=== PATIENT | female | born 1950 | race Caucasian/White ===

== ENCOUNTER → 2021-11-02 | Outpatient (CLI) | payer MEDICARE | END | disposition home or self-care (01) | LOC: LABPAT 15:27 | PROVIDERS: ATTEND Orthopaedic Surgery | DX: Z01.812 Encounter for preprocedural laboratory examination (principal); Z22.322 Carrier or suspected carrier of Methicillin resistant Staphylococcus aureus; M17.11 Unilateral primary osteoarthritis, right knee | CPT/HCPCS: 87070 ==

== ENCOUNTER 2021-11-20 08:32 | Observation (INO) | payer MEDICARE ==
[2021-11-19 09:06] VITALS: BMI 36.1
--- NOTE | 2021-11-19 11:09 | HP ---
HISTORY AND PHYSICAL CHIEF COMPLAINT: Right knee pain. HISTORY OF PRESENT ILLNESS: The patient is a 71-year-old retired female who presents with progressive right knee pain over the past several years. It has worsened recently. She notes pain with weight-bearing activities. She has stiffness and soreness. She has tried previous medications and injections, with only partial temporary relief. PAST MEDICAL HISTORY: Significant for anemia, type 2 diabetes and hypertension. PAST SURGICAL HISTORY: Significant for left total knee arthroplasty and colonoscopy. CURRENT MEDICATIONS: Aspirin, gabapentin, glipizide, Invokana, Januvia, metformin, omeprazole, simvastatin. ALLERGIES: SHE DENIES DRUG ALLERGIES. FAMILY HISTORY: Significant for cancer. SOCIAL HISTORY: Negative for current tobacco or alcohol use. REVIEW OF SYSTEMS: Sixteen-point review of systems otherwise reviewed and is noncontributory. PHYSICAL EXAMINATION: On examination, the patient is approximately 5 feet tall, 185 pounds of endomorphic habitus. HEENT exam is nonfocal. Neck is supple. She has painless passive motion of the right hip. Straight-leg raise is negative. Active motion of right knee: Minus 8 to 92 degrees of flexion. She has a moderate effusion. She is tender about the medial joint line. Collaterals are stable. Deborah is negative. Beto's is equivocal. She has genu varum alignment. She has an antalgic gait pattern. Her distal neurovascular exam appears intact, right lower extremity. Weight-bearing notch, lateral and Merchant views of right knee obtained in the office show severe medial and patellofemoral compartment osteoarthrosis with subchondral sclerosis and [id number] changes. IMPRESSION: Right knee severe medial and patellofemoral compartment osteoarthrosis. RECOMMENDATIONS: I talked to the patient at length regarding her condition along with treatment options. At this point she is quite limited because of pain related to her osteoarthrosis despite previous conservative measures. After thorough discussion, she opts to proceed with surgery. We will plan to proceed with right total knee arthroplasty. We will institute DVT prophylaxis postoperatively. MMODL / IJN: [id number] /
[~2021-11-20 08:32] MED LIST: ACETAMINOPHEN TAB 500 MG TAB PO PRN; DEXAMETHASONE SOD PHOSPHATE 4 MG/ML 1 ML VIAL IV ONE; HYDROmorphone 0.5 MG/0.5 ML SYRINGE IVP PRN; LIDOCAINE 1% (10MG/ML) FOR IV START INTRADERMA PRN; MELOXICAM 7.5 MG TAB PO PRN; MIDAZOLAM 2 MG/2 ML VIAL IV PRN; ONDANSETRON 4 MG/2 ML VIAL IVP ONE; TRANEXAMIC ACID IN NACL,ISO-OS 1,000 MG in SALINE 1 100ML.BAG IVPB PRN
[2021-11-20] MEDS: LACTATED RINGERS 1,000 ML IV SCH (09:14)
[2021-11-20] MEDS ORDERED: MIDAZOLAM 2 MG/2 ML VIAL IVP ONE (09:33)
[2021-11-20 10:01] LABS: Glucose,Whole Blood 207 mg/dL (75-99)
[2021-11-20] MEDS ORDERED: INSULIN ASPART (NovoLOG) 100 UNIT/ML VIAL SQ ONE (10:04)
[2021-11-20] MEDS ORDERED: TRANEXAMIC ACID IN NACL,ISO-OS 1,000 MG/100 ML BAG ONE (10:23)
[2021-11-20] MEDS ORDERED: PROPOFOL 10 MG/ML 20 ML VIAL IV ONE (10:23)
[2021-11-20] MEDS ORDERED: DEXAMETHASONE SOD PHOSPHATE 4 MG/ML 1 ML VIAL ONE (10:23)
[2021-11-20] MEDS ORDERED: fentaNYL (PF) 50 MCG/ML 2 ML AMP ONE (10:23)
[2021-11-20] MEDS ORDERED: ROPIVACAINE 5 MG/ML 30 ML VIAL ONE (10:23)
[2021-11-20] MEDS ORDERED: MIDAZOLAM 2 MG/2 ML VIAL ONE (10:23)
[2021-11-20] MEDS ORDERED: ceFAZolin 1,000 MG in SODIUM CHLORIDE 0.9% 1,000 ML IRRIGATION ONE (10:50)
[2021-11-20] MEDS ORDERED: NALOXONE 0.4 MG/ML 1 ML VIAL IV PRN (11:37)
[2021-11-20] MEDS ORDERED: HYDROcodone/APAP 5-325MG 1 EACH TAB PO PRN (11:37)
[2021-11-20] MEDS ORDERED: LACTATED RINGERS 1,000 ML IV ONE (12:10)
--- NOTE | 2021-11-20 12:35 | P.OP ---
Date of Procedure: 11/20/21 Preoperative Diagnosis: Right knee severe tricompartmental osteoarthrosis Postoperative Diagnosis: Same Procedure(s) Performed: Right total knee arthroplastycementedposterior stabilized Implants: Depuy Attune size 3 cemented femoral component, size 3 cemented tibial component, 10 mm articular surface, 29 mm cemented patellar component. This is a posterior stabilized implant. Anesthesia: regional, spinal Surgeon: Wesley Edwards Cider Press Operator #1: Neto Thakkar Estimated Blood Loss (ml): 50 Pathology: other (Bone fragments) Condition: stable Disposition: PACU Indications for Procedure: The patient's a 71-year-old female presents with progressive right knee pain secondary osteoarthrosis despite conservative measures. A discussion of the risks and benefits of operative intervention versus continued conservative measures was made with the patient. She opted to proceed with surgery. Operative risks to include infection, neurovascular injury, development of blood clots, fracture, possible component loosening/failure need for subsequent procedures was discussed. Informed consent was obtained. Operative Findings: As below Description of Procedure: The patient was brought to the operating room, and after induction of spinal anesthesia the right lower extremity was prepped and draped in a normal fashion. The tourniquet was inflated to 270 mm marker. A longitudinal incision extending 3 finger breaths above the superior pole of patella extending to the medial aspect the tibial tubercle was then made. The skin and subcutaneous tissues were divided sharply. Electrocautery was used for hemostasis. A medial parapatellar arthrotomy was performed. The medial soft tissues to include the superficial and deep portions of the medial collateral ligament were elevated subperiosteally. The patella was everted. A portion of the retropatellar fat pad was excised sharply. The anterior cruciate ligament was sacrificed. Blunt retractors were placed. A starting hole was made in the distal femur 1 cm anterior to the posterior cruciate ligament origin. An intramedullary femoral guide was then inserted planning on 5 valgus distal cut with 9 mm distal resection. The cutting block was pinned in place. The distal cut was then made. The posterior referencing sizing guide was utilized. I felt size 3 was most appropriate. 3 of external rotation was built into the system and verified off the trans-epicondylar axis and the posterior condyles. The cutting block was pinned in place. The anterior, posterior, and chamfer cuts then made. Bone fragments were removed. The intercondylar guide was placed and the notch cut was made with a sagittal saw. The bone block was removed in one fragment. The trial component was then placed. There is good anterior to posterior and medial to lateral fit. The distal peg holes were drilled. The trial component was removed. Attention was then paid towards preparing the proximal femur. An extra medullary guide was utilized in line with the tibial shaft and second metatarsal distally. I planned on 1 mm resection from the medial compartment. The cutting block was pinned in place. The proximal tibial cut was then made. The bone was removed in one fragment. The remnants of the medial and lateral menisci were excised at the capsular junction with electrocautery. The tibia sized most appropriately at size 3. The trial femoral and tibial components were placed along with a 10 mm articular surface. I was able to obtain full flexion and extension with internal and external rotation. After several flexion and extension cycles, the tibial rotation was marked with electrocautery line with the medial one third of the tibial tubercle. Attention was then paid towards preparing the patella. A patella reamer was utilized taking stem to 14 mm of bone stock. A good flush cut was made. The patella sized most appropriately 29 mm. The peg holes were drilled. The trial components placed. I had good patellofemoral tracking with no hands technique. The trial components were then removed. The tibia was prepared in the appropriate rotation with appropriate drill and keel punch. The posterior osteophytes were removed with a curved osteotome. The flexion and extension gaps were checked and felt to be symmetric at 10 mm. A trial components were then removed. The bony surfaces were prepared with pulsatile lavage and dried. The tibial component was then cemented place was fully seated. Excess cement was removed. The femoral component cemented place and was fully seated. Excess cement was removed. The trial 10 mm articular surface was placed and the knee was put in full extension. The patella component was cemented place. After the cement had sufficiently hardened, the knee was again taken through a range of motion. Again I was able to obtain full flexion and extension with varus and valgus stress. The trial 10 mm articular surface was removed and the final one inserted. This was fully seated. Care was taken to avoid any soft tissue interposition. Pulsatile lavage was again utilized. The medial parapatellar arthrotomy was closed with #2 Ethibond suture. The tourniquet was deflated with approximately 65 minutes total tourniquet time. Final hemostasis was obtained with the cautery. There was minimal bleeding therefore a deep drain was not placed. The subcutaneous tissues were reapproximated with interrupted 2-0 Vicryl sutures. The skin was reapproximated with 3-0 subcuticular strata fix suture. Skin tape and adhesive was applied. A sterile dressing was applied. The patient was awoken from sedation and transferred to recovery room in good condition. Blood loss was estimated at 50 mL. No complications were incurred. Sponge and needle counts were correct at the end of the case. Madhu FAITH assisted during the major components of this case to include exposure, bone resection, implantation, and closure.
[2021-11-20] MEDS ORDERED: ROPIVACAINE 0.2%-NS ON-Q PUMP 1,090 MG, EMPTY PAIN BALL 1 EACH MISCELLANE PRN (12:48)
[2021-11-20 12:55] LABS: Glucose,Whole Blood 173 mg/dL (75-99)
--- NOTE | 2021-11-20 13:02 | XR ---
EXAMINATION TYPE: XR knee limited RT DATE OF EXAM: 11/20/2021 COMPARISON: NONE TECHNIQUE: Two views submitted HISTORY: Post op FINDINGS: There is a prosthetic knee in near anatomic alignment. There is soft tissue edema and emphysema. IMPRESSION: 1. Postoperative change. Appears in near-anatomic alignment
[2021-11-20] MEDS: HYDROmorphone 0.5 MG/0.5 ML SYRINGE IVP PRN (16:32)
[2021-11-20 16:57] LABS: Glucose,Whole Blood 247 mg/dL (75-99)
[2021-11-20] MEDS: HYDROcodone/APAP 7.5-325MG 1 EACH TAB PO PRN (17:19)
[2021-11-20] MEDS ORDERED: lisinopriL 10 MG TAB PO SCH (21:00)
[2021-11-20] MEDS: SENNOSIDES-DOCUSATE SODIUM 1 EACH TAB PO SCH (22:17)
[2021-11-20 22:37] LABS: Glucose,Whole Blood 272 mg/dL (75-99)
[2021-11-21] MEDS: HYDROcodone/APAP 7.5-325MG 1 EACH TAB PO PRN ×4 (00:14→17:56)
[2021-11-21 05:16] LABS: ALT 17 U/L (4-34); AST 18 U/L (14-36); African American GFR (CKD) 81 (>60 ml/min/1.73 sqM); Albumin 3.6 g/dL (3.5-5.0); Albumin/Globulin Ratio 1.6; Alkaline Phosphatase 75 U/L (38-126); Anion Gap 11 mmol/L; Blood Urea Nitrogen 20 mg/dL (7-17); Calcium 9.3 mg/dL (8.4-10.2); Carbon Dioxide 20 mmol/L (22-30); Chloride 105 mmol/L (98-107); Globulin 2.2 g/dL; Glucose 174 mg/dL (74-99); Non-African American GFR(CKD) 70 (>60 ml/min/1.73 sqM); Potassium 5.2 mmol/L (3.5-5.1); Sodium 136 mmol/L (137-145); Total Bilirubin 0.6 mg/dL (0.2-1.3); Total Protein 5.8 g/dL (6.3-8.2)
[2021-11-21] MEDS: ENOXAPARIN 30 MG/0.3 ML SYRINGE SQ SCH ×2 (06:01→17:56)
[2021-11-21] MEDS: LACTATED RINGERS 1,000 ML IV SCH (06:01)
[2021-11-21 07:03] LABS: Glucose,Whole Blood 177 mg/dL (75-99)
[2021-11-21] MEDS: INSULIN ASPART (NovoLOG) 100 UNIT/ML VIAL SQ SCH ×4 (07:27→21:06)
[2021-11-21] MEDS: HYDROmorphone 0.5 MG/0.5 ML SYRINGE IVP PRN ×2 (07:30→19:37)
--- NOTE | 2021-11-21 07:38 | P.PN ---
Progress Note - Text Progress Note Date: 11/21/21 A 71-year-old lady postop day #1 status post right total knee replacement with anicteric canal catheter. The patient has moderate pain anterior. There is no tenderness or erythema around the entry site of the catheter. The patient is getting combination of oral and IV medications for her pain.
[2021-11-21 08:59] LABS: Basophils # (A) 0.01 X 10*3/uL (0.00-0.10); Basophils % (A) 0.1 %; Eosinophils # (A) 0 X 10*3/uL (0.04-0.35); Eosinophils % (A) 0 %; HCT 42.1 % (37.2-46.3); HGB 13.2 g/dL (12.0-15.0); Immature Grans, Automated 0.6 %; Lymphocytes # (A) 1.44 X 10*3/uL (0.90-5.00); Lymphocytes % (A) 17.4 %; MCH 28.9 pg (27.0-32.0); MCHC 31.4 g/dL (32.0-37.0); MCV 92.1 fL (80.0-97.0); Mean Platelet Volume 11.4 fL (9.5-12.2); Monocytes # (A) 0.72 X 10*3/uL (0.20-1.00); Monocytes % (A) 8.7 %; NRBC Per 100 WBC 0 /100 WBCS (0.0-0.0); Neutrophils # (A) 6.04 X 10*3/uL (1.80-7.70); Neutrophils % (A) 73.2 %; Platelet Count 286 X 10*3/uL (140-440); RBC 4.57 X 10*6/uL (4.10-5.20); RDW 12.2 % (11.5-14.5); WBC 8.26 X 10*3/uL (4.50-10.00)
--- NOTE | 2021-11-21 11:11 | P.PN ---
Subjective Progress Note Date: 11/21/21 Principal diagnosis: Status post right total knee arthroplasty Patient evaluated at bedside, she is resting in her hospital chair. She is quite painful after ambulating with therapy. She was unable to do the stairs today. She denies any headaches, lightheadedness, chest pain or shortness of breath. She denies any difficulty with urination. Objective - Vital Signs Vital signs: Vital Signs Temp 97.3 F L 11/21/21 07:38 Pulse 80 11/21/21 07:38 Resp 17 11/21/21 07:38 BP 104/62 11/21/21 07:38 Pulse Ox 94 L 11/21/21 07:38 Intake & Output 11/20/21 11/21/21 11/21/21 18:59 06:59 18:59 Intake Total 1451 Output Total 50 Balance 1401 Weight 84.6 kg Intake: IV 1451 Output: Estimated Blood Loss 50 Other: Voiding Method Bedside Commode Bedpan # Voids 1 2 - Exam Right lower extremity: Incision is clean, dry, and intact. The exofin fusion tape is in good condition. There is minimal soft tissue swelling and ecchymosis surrounding the medial and lateral aspects of the incision. Calf is soft, no tenderness with palpation. Plantar flexion, dorsiflexion, EHL, FHL are intact. Sensory exam to light touch throughout the extremity is intact, dorsal pedis pulses 2+. - Labs CBC & Chem 7: 11/21/21 03:58 11/21/21 03:58 Labs: Abnormal Lab Results - Last 24 Hours (Table) 11/20/21 11/20/21 11/20/21 Range/Units 12:54 16:55 22:28 MCHC (32.0-37.0) g/dL Immature Gran # (0.00-0.04) X 10*3/uL Eosinophils # (0.04-0.35) X 10*3/uL Sodium (137-145) mmol/L Potassium (3.5-5.1) mmol/L Carbon Dioxide (22-30) mmol/L BUN (7-17) mg/dL Glucose (74-99) mg/dL POC Glucose (mg/dL) 173 H 247 H 272 H (75-99) mg/dL Total Protein (6.3-8.2) g/dL 11/21/21 11/21/21 11/21/21 Range/Units 03:58 03:58 07:01 MCHC 31.4 L (32.0-37.0) g/dL Immature Gran # 0.05 H (0.00-0.04) X 10*3/uL Eosinophils # 0 L (0.04-0.35) X 10*3/uL Sodium 136 L (137-145) mmol/L Potassium 5.2 H (3.5-5.1) mmol/L Carbon Dioxide 20 L (22-30) mmol/L BUN 20 H (7-17) mg/dL Glucose 174 H (74-99) mg/dL POC Glucose (mg/dL) 177 H (75-99) mg/dL Total Protein 5.8 L (6.3-8.2) g/dL Assessment and Plan Assessment: Postoperative day #1 status post right total knee arthroplasty Plan: Pain control, continue use of oral medication and IV as breakthrough GI and DVT prophylaxis, continue Lovenox during inpatient stay Wound care, daily dressing changes. Ice and elevate often Encourage incentive spirometer Weight-bear as tolerated with walker Continue working with physical therapy Medical recommendations Discharge planning: Due to pain control and difficulty with stairs, we'll keep additional night. Hopefully discharged on 11/22/2021 Time with Patient: Less than 30
[2021-11-21] MEDS ORDERED: GABAPENTIN 100 MG CAP PO PRN (11:24)
--- NOTE | 2021-11-21 11:52 | P.CONS ---
History of Present Illness - Reason for Consult Consult date: 11/21/21 Medical management status right total knee arthroplasty - History of Present Illness This is a pleasant 71-year-old female who was admitted under orthopedic services for right total knee arthroplasty and is postop day #1. Patient found sitting up in the chair and had worked with physical therapy although experiencing 10/10 pain and unable to do the stairs and recommend to have physical therapy evaluate daily and recommend staying another 24 hours for pain management. Patient does have a past medical history of diabetes mellitus, gastroesophageal reflux disease, and hypertension and follows with Dr. Giovanni Velasco out of [place] as her primary care provider. Patient takes lisinopril for blood pressure although recommend holding and monitoring closely for any postoperative hypotension. Recommend sliding scale and Accu-Cheks before meals and at bedtime as patient does have diabetes and reports to taking oral diabetic agents at home. Patient denies smoking, reports to occasional very rare social drinking, and denies any other illicit drugs. Labs this morning reveal a WBC of 8.26, hemoglobin is 13.2, platelets are 286, sodium is 136, potassium 5.2, BUN 20, creatinine 0.85, calcium is 9.3. Patient does have incentive spirometer at the bedside and encourage the patient to continue using at least 10 times every hour while awake and also encouraged increased activity as tolerated. Pain managemen t and DVT prophylaxis per primary service. Review Of Systems: Constitutional: No fever, no chills, no night sweats. No weight change. No weakness, fatigue or lethargy. No daytime sleepiness. EENT: No headache. No blurred vision or double vision, no loss of vision. No loss of Hearing, no ringing in the ears, no dizziness. No nasal drainage or congestion. No epistaxis. No sore throat. Lungs: No shortness of breath, cough, no sputum production. No wheezing. Cardiovascular: No chest pain, no lower extremity edema. No palpitations. No paroxysmal nocturnal dyspnea. No orthopnea. No lightheadedness or dizziness. No syncopal episodes. Abdominal: No abdominal pain. No nausea, vomiting. No diarrhea. No constipation. No bloody or tarry stools.. No loss of appetite. Genitourinary: No dysuria, increased frequency, urgency. No urinary retention. Musculoskeletal: No myalgias. Reports muscle weakness and spasms of the right leg, reports gait dysfunction, no frequent falls. No back pain. No neck pain. Integumentary: No wounds, no lesions. No rash or pruritus. No unusual bru ising. No change in hair or nails. Neurologic: No aphasia. No facial droop. No change in mentation. No head injury. No headache. No paralysis. No paresthesia. Psychiatric: No depression. No anxiety. No mood swings. Endocrine: No abnormal blood sugars. No weight change. No excessive sweating or thirst. No cold intolerance. Rest of the 14 point review of systems are negative except for mentioned above PHYSICAL EXAMINATION: GENERAL: The patient is alert and oriented x4, Well developed, well nourished. HEENT: Pupils are round and equally reacting to light. EOMI. no scleral icterus. No conjunctival pallor. Normocephalic, atraumatic. No pharyngeal erythema. No thyromegaly. CARDIOVASCULAR: S1 and S2 muffled PULMONARY: Chest is clear to auscultation with no wheezing or rhonchi noted. ABDOMEN: soft. Nontender on exam. obese. non-distended, normoactive bowel sounds. No palpable organomegaly. MUSCULOSKELETAL: No joint swelling or deformity. EXTREMITIES: No cyanosis, clubbing, or pedal edema. Right knee surgical dressing is intact with no surrounding redness and some minimal swelling noted NEUROLOGICAL: Gross neurological examination did not reveal any focal deficits. Diffuse weakness SKIN: No rashes. Assessment: Status post right total knee arthroplasty Diabetes mellitus type 2 Hypertension Gastroesophageal reflux disease History of restless leg syndrome GI prophylaxis DVT prophylaxis Full code Plan: Recommend to continue with current medications and management per orthopedic services. Patient does have a history of diabetes mellitus normally only takes oral diabetic agents and appropriate home medications have been resumed. Recommend holding lisinopril while awaiting labs and monitoring closely for postop hypotension and will continue to monitor closely and possibly resume tomorrow. Patient with continued pain and encourage the patient to increase activity as tolerated and also continue using incentive spirometer at least 10 times every hour while awake. Patient reports passing minimal gas and no bowel movement as of yet and patient is urinating with no difficulty. PT/OT to follow and reevaluate in the morning with possible discharge in 24 hours from orthopedic services. Patient reports she will be going home with possible home care. We will continue to follow during hospitalization. Thank you for this consultation. The impression and plan of care has been dictated by Keisha Elena, nurse practitioner as directed. Dr. Woodrow MD I have performed a history and examination and MDM of this patient, discussed the same with the dictator, and agree with the dictator's assessment and plan as written ,documented as a scribe. Based on total visit time, I have performed more than 50% of the visit. Any additional findings or plans will be noted. Past Medical History Past Medical History: Diabetes Mellitus, GERD/Reflux, Hypertension Additional Past Medical History / Comment(s): RLS, anemia, OAB., hx covid 2019. History of Any Multi-Drug Resistant Organisms: None Reported Past Surgical History: Joint Replacement Additional Past Surgical History / Comment(s): total left knee (2009), TRK 11/20/21 Past Anesthesia/Blood Transfusion Reactions: No Reported Reaction Past Psychological History: No Psychological Hx Reported Smoking Status: Never smoker Past Alcohol Use History: Rare Past Drug Use History: None Reported - Past Family History Father Family Medical History: Cancer Additional Family Medical History / Comment(s): brain cancer Medications and Allergies Home Medications Medication Instructions Recorded Confirmed Type Aspirin [Adult Low Dose Aspirin EC] 81 mg PO DAILY 11/19/21 11/19/21 History Biotin [Biotin Disolve] 5,000 mcg PO DAILY 11/19/21 11/19/21 History Calcium 600 With Vit D 1 tab PO W/SUPPER 11/19/21 History Canagliflozin [Invokana] 100 mg PO DAILY 11/19/21 11/19/21 History Cholecalciferol [Vitamin D3 (25 50 mcg PO DAILY 11/19/21 11/19/21 History Mcg = 1000 Iu)] Cyanocobalamin (Vitamin B-12) 2,000 mcg PO DAILY 11/19/21 11/20/21 History [Vitamin B-12] Ferrous Sulfate [Feosol] 650 mg PO W/SUPPER 11/19/21 11/19/21 History Gabapentin [Neurontin] 100 - 200 mg PO HS PRN 11/19/21 11/19/21 History Mv,Calcium,Min/Iron/Folic/Vitk 1 each PO DAILY 11/19/21 11/19/21 History [One-A-Day Women's Complete Tab] [place]-3 Fatty Acids/Fish Oil [Fish 1 each PO TID 11/19/21 11/19/21 History Oil 1,000 mg Softgel] Omeprazole 20 mg PO DAILY 11/19/21 11/19/21 History Phentermine HCl [Adipex-P] 37.5 mg PO DAILY 11/19/21 11/19/21 History Simvastatin [Zocor] 20 mg PO W/SUPPER 11/19/21 11/19/21 History Tolterodine Tartrate [Detrol LA] 4 mg PO W/SUPPER 11/19/21 11/19/21 History glipiZIDE [Glucotrol] 20 mg PO AC-BID 11/19/21 11/19/21 History lisinopriL 10 mg PO W/SUPPER 11/19/21 11/19/21 History metFORMIN HCL [Glucophage] 850 mg PO PC-TID 11/19/21 11/19/21 History sitaGLIPtin [Januvia] 100 mg PO DAILY@1200 11/19/21 11/19/21 History Allergies Allergy/AdvReac Type Severity Reaction Status Date / Time No Known Allergies Allergy Verified 11/20/21 08:57 Physical Exam Vitals: Vital Signs Temp Pulse Pulse Pulse Resp BP Pulse Ox 11/21/21 07:38 97.3 F L 80 17 104/62 94 L 11/21/21 01:48 98.2 F 101 H 18 130/84 91 L 11/20/21 19:16 98.2 F 94 101 H 18 155/89 94 L 11/20/21 16:13 98.3 F 100 18 155/94 99 11/20/21 15:00 92 16 144/78 98 11/20/21 14:30 91 16 140/75 97 11/20/21 14:00 88 15 146/81 99 11/20/21 13:30 81 16 132/71 98 11/20/21 13:16 73 16 120/65 97 11/20/21 13:00 80 16 120/61 98 11/20/21 12:45 80 16 112/61 96 11/20/21 12:30 96.8 F L 83 18 112/60 93 L 11/20/21 10:20 98 16 150/77 98 11/20/21 09:00 97.9 F 102 H 16 183/90 96 Intake and Output 11/20/21 11/21/21 11/21/21 22:59 06:59 14:59 Intake Total 350 Balance 350 Intake: IV 350 Other: Voiding Method Bedside Commode Bedpan # Voids 1 2 Weight 84.6 kg Results CBC & Chem 7: 11/21/21 03:58 11/21/21 03:58 Labs: Abnormal Lab Results - Last 24 Hours (Table) 11/20/21 11/20/21 11/20/21 Range/Units 09:59 12:54 16:55 Sodium (137-145) mmol/L Potassium (3.5-5.1) mmol/L Carbon Dioxide (22-30) mmol/L BUN (7-17) mg/dL Glucose (74-99) mg/dL POC Glucose (mg/dL) 207 H 173 H 247 H (75-99) mg/dL Total Protein (6.3-8.2) g/dL 11/20/21 11/21/21 11/21/21 Range/Units 22:28 03:58 07:01 Sodium 136 L (137-145) mmol/L Potassium 5.2 H (3.5-5.1) mmol/L Carbon Dioxide 20 L (22-30) mmol/L BUN 20 H (7-17) mg/dL Glucose 174 H (74-99) mg/dL POC Glucose (mg/dL) 272 H 177 H (75-99) mg/dL Total Protein 5.8 L (6.3-8.2) g/dL
[2021-11-21] MEDS: CYCLOBENZAPRINE 5 MG TAB PO PRN (12:03)
[2021-11-21 12:10] LABS: Glucose,Whole Blood 294 mg/dL (75-99)
[2021-11-21] MEDS: LINAGLIPTIN 5 MG TABLET PO SCH (12:38)
[2021-11-21] MEDS: metFORMIN 850 MG TAB PO SCH ×2 (12:38→17:56)
[2021-11-21 16:48] LABS: Glucose,Whole Blood 362 mg/dL (75-99)
[2021-11-21] MEDS ORDERED: OXYBUTYNIN 10 MG TAB.ER.24 PO SCH (17:30)
[2021-11-21] MEDS ORDERED: ATORVASTATIN 10 MG TAB PO SCH (17:30)
[2021-11-21] MEDS: glipiZIDE 10 MG TAB PO SCH (17:56)
[2021-11-21] MEDS: SENNOSIDES-DOCUSATE SODIUM 1 EACH TAB PO SCH (19:37)
[2021-11-21 20:32] LABS: Glucose,Whole Blood 329 mg/dL (75-99)
[2021-11-22] MEDS: CYCLOBENZAPRINE 5 MG TAB PO PRN ×2 (01:35→13:43)
[2021-11-22] MEDS: HYDROcodone/APAP 7.5-325MG 1 EACH TAB PO PRN ×2 (01:35→09:40)
[2021-11-22] MEDS: LACTATED RINGERS 1,000 ML IV SCH (05:09)
[2021-11-22] MEDS: ENOXAPARIN 30 MG/0.3 ML SYRINGE SQ SCH (06:31)
[2021-11-22 07:04] LABS: Glucose,Whole Blood 206 mg/dL (75-99)
[2021-11-22] MEDS ORDERED: PANTOPRAZOLE 40 MG TABLET PO SCH (07:30)
[2021-11-22] MEDS: INSULIN ASPART (NovoLOG) 100 UNIT/ML VIAL SQ SCH ×2 (07:47→11:55)
[2021-11-22] MEDS: glipiZIDE 10 MG TAB PO SCH (07:47)
[2021-11-22] MEDS: metFORMIN 850 MG TAB PO SCH ×2 (07:47→11:55)
[2021-11-22 08:20] VITALS: BP 167/84; PULSE 100; RESP 18; TEMP 98
[2021-11-22] MEDS ORDERED: ASPIRIN 81 MG PO SCH (09:00)
[2021-11-22] MEDS ORDERED: NON FORMULARY DRUG (Canagliflozin [Invokana] 100 MG Tablet) PO SCH (09:00)
[2021-11-22 11:31] LABS: Glucose,Whole Blood 218 mg/dL (75-99)
[2021-11-22] MEDS: LINAGLIPTIN 5 MG TABLET PO SCH (11:55)
--- NOTE | 2021-11-22 12:03 | P.PN ---
Subjective Progress Note Date: 11/22/21 Principal diagnosis: Status post right total knee arthroplasty Patient evaluated at bedside, she is resting in her hospital bed, her daughter is present. She states that she is doing a lot better today. She was able to do stairs physical therapy. She denies any headaches, lightheadedness, chest pain or shortness of breath. She denies any difficulty with urination. Objective - Vital Signs Vital signs: Vital Signs Temp 98.0 F 11/22/21 08:00 Pulse 100 11/22/21 10:40 Resp 18 11/22/21 10:40 BP 167/84 11/22/21 08:00 Pulse Ox 96 11/22/21 08:00 Intake & Output 11/21/21 11/22/21 11/22/21 18:59 06:59 18:59 Other: Voiding Method Bedside Commode Bedpan # Voids 4 1 2 # Bowel Movements 1 - Exam Right lower extremity: Incision is clean, dry, and intact. The exofin fusion tape is in good condition. There is minimal soft tissue swelling and ecchymosis surrounding the medial and lateral aspects of the incision. Calf is soft, no tenderness with palpation. Plantar flexion, dorsiflexion, EHL, FHL are intact. Sensory exam to light touch throughout the extremity is intact, dorsal pedis pulses 2+. - Labs CBC & Chem 7: 11/21/21 03:58 11/21/21 03:58 Labs: Abnormal Lab Results - Last 24 Hours (Table) 11/21/21 11/21/21 11/21/21 Range/Units 12:08 16:46 20:31 POC Glucose (mg/dL) 294 H 362 H 329 H (75-99) mg/dL 11/22/21 11/22/21 Range/Units 07:03 11:30 POC Glucose (mg/dL) 206 H 218 H (75-99) mg/dL Assessment and Plan Assessment: Postoperative day #2 status post right total knee arthroplasty Plan: Pain control, plan for discharge on [place] 7.5 mg/325 mg GI and DVT prophylaxis, Eliquis 2.5 mg twice a day at discharge Wound care, daily dressing changes. Ice and elevate often Encourage incentive spirometer Weight-bear as tolerated with walker Continue working with physical therapy Medical recommendations Discharge planning: Stable for discharge home today Time with Patient: Less than 30
--- NOTE | 2021-11-22 12:06 | P.DS ---
Providers Date of admission: 11/21/21 07:35 Expected date of discharge: 11/22/21 Attending physician: Wesley Edwards Consults: 11/20/21 11:40 Consult Physician Routine Consulting Provider: Carlita Troy Consult Reason/Comments: Medical Management s/p right total knee arthroplasty Do you want consulting provider notified?: Yes Primary care physician: [facility] Course: Date of admission: 11/20/2021 Date of discharge: 11/22/2021 Admission diagnosis: Status post right total knee arthroplasty Discharge diagnosis: Same Attending physician: Dr. Edwards Surgical procedures: Right total knee arthroplasty Brief history: Patient is a 71-year-old female with a history of progressive primary right knee osteoarthritis. At this point patient has failed conservative treatment measures and has opted to proceed with a elective right total knee arthroplasty. Hospital course: Details of patient's surgery can be found in operative report. Patient tolerated the procedure well and was subsequently transported to orthopedic floor. Patient's orthopeidc and medical care was provided daily. Patient had daily laboratory tests performed for evaluation of overall blood counts. Patient had daily physical therapy to include strengthening range of motion as well as education with walker ambulation. Patient was treated with Lovenox for their postoperative DVT prophylaxis during their inpatient stay. Patient was noted to have a relatively uneventful postoperative course. Patient reported satisfactory pain control with oral pain medications by postoperative day 1. Patient showed satisfactory progress with physical therapy. Patient moved steadily through the program and had no difficulty meeting the goals by postoperative day 2. Given patient's otherwise satisfactory course and having met physical therapy goals, plan is to discharge patient home on postoperative day 2. Discharge condition/disposition: Patient will be discharged home in stable condition. Discharge medications: Instructions are given on resumption of patient's normal daily medications per primary care recommendation, in addition patient will be prescribed [place] 7.5 mg/325 mg, Colace 100 mg, Eliquis 2.5 mg. Discharge instructions: 1. Wound care and infection precautions, keep incision dry and covered while showering, no lotions, creams, moisturizers. No soaking, tubs, pools, hottubs. Do not scrub over the incision. 2. Weight-bear as tolerated with walker / cane until follow-up. 3. Ice and elevate when necessary. Do not exceed 20 minutes per hour with ice pack. 4. Utilize compression sleeve until seen at first follow up appointment. 5. Visiting nursing care. 6. Home physical therapy including home CPM. 7. Pain meds and anticoagulants per prescription. 8. Pain medication has potential to cause constipation. Increase oral fluid and fiber intake. Contact primary care provider if you have not had a bowel movement within 48 hours after discharge 9. No anti-inflammatory medication until discussed at first post operative visit, this including Motrin, Aleve, Mobic, Diclofenac. 10. Follow up in office at 2 weeks postop with Madhu Thakkar PA-C/Ezequiel Galeana 11. Follow up with your primary care doctor 7-10 days after discharge. 12. Contact [facility] with any questions, . Procedures: Right total knee arthroplasty Patient Condition at Discharge: Good Plan - Discharge Summary Discharge Rx Participant: Yes New Discharge Prescriptions: New Docusate [Colace] 100 mg PO DAILY #30 capsule Apixaban [Eliquis] 2.5 mg PO BID #60 tab HYDROcodone/APAP 7.5-325MG [[place] 7.5] 1 each PO Q6HR PRN #28 tab PRN Reason: Pain No Action Ferrous Sulfate [Feosol] 650 mg PO W/SUPPER metFORMIN HCL [Glucophage] 850 mg PO PC-TID lisinopriL 10 mg PO W/SUPPER Omeprazole 20 mg PO DAILY [place]-3 Fatty Acids/Fish Oil [Fish Oil 1,000 mg Softgel] 1 each PO TID Mv,Calcium,Min/Iron/Folic/Vitk [One-A-Day Women's Complete Tab] 1 each PO DAILY Calcium 600 With Vit D 1 tab PO W/SUPPER Biotin [Biotin Disolve] 5,000 mcg PO DAILY Aspirin [Adult Low Dose Aspirin EC] 81 mg PO DAILY Cholecalciferol [Vitamin D3 (25 Mcg = 1000 Iu)] 50 mcg PO DAILY Gabapentin [Neurontin] 100 - 200 mg PO HS PRN PRN Reason: RLS Canagliflozin [Invokana] 100 mg PO DAILY glipiZIDE [Glucotrol] 20 mg PO AC-BID Simvastatin [Zocor] 20 mg PO W/SUPPER sitaGLIPtin [Januvia] 100 mg PO DAILY@1200 Tolterodine Tartrate [Detrol LA] 4 mg PO W/SUPPER Phentermine HCl [Adipex-P] 37.5 mg PO DAILY Cyanocobalamin (Vitamin B-12) [Vitamin B-12] 2,000 mcg PO DAILY Discharge Medication List Aspirin [Adult Low Dose Aspirin EC] 81 mg PO DAILY 11/19/21 [History] Biotin [Biotin Disolve] 5,000 mcg PO DAILY 11/19/21 [History] Calcium 600 With Vit D 1 tab PO W/SUPPER 11/19/21 [History] Canagliflozin [Invokana] 100 mg PO DAILY 11/19/21 [History] Cholecalciferol [Vitamin D3 (25 Mcg = 1000 Iu)] 50 mcg PO DAILY 11/19/21 [History] Cyanocobalamin (Vitamin B-12) [Vitamin B-12] 2,000 mcg PO DAILY 11/19/21 [History] Ferrous Sulfate [Feosol] 650 mg PO W/SUPPER 11/19/21 [History] Gabapentin [Neurontin] 100 - 200 mg PO HS PRN 11/19/21 [History] Mv,Calcium,Min/Iron/Folic/Vitk [One-A-Day Women's Complete Tab] 1 each PO DAILY 11/19/21 [History] [place]-3 Fatty Acids/Fish Oil [Fish Oil 1,000 mg Softgel] 1 each PO TID 11/19/21 [History] Omeprazole 20 mg PO DAILY 11/19/21 [History] Phentermine HCl [Adipex-P] 37.5 mg PO DAILY 11/19/21 [History] Simvastatin [Zocor] 20 mg PO W/SUPPER 11/19/21 [History] Tolterodine Tartrate [Detrol LA] 4 mg PO W/SUPPER 11/19/21 [History] glipiZIDE [Glucotrol] 20 mg PO AC-BID 11/19/21 [History] lisinopriL 10 mg PO W/SUPPER 11/19/21 [History] metFORMIN HCL [Glucophage] 850 mg PO PC-TID 11/19/21 [History] sitaGLIPtin [Januvia] 100 mg PO DAILY@1200 11/19/21 [History] Apixaban [Eliquis] 2.5 mg PO BID #60 tab 11/22/21 [Rx] Docusate [Colace] 100 mg PO DAILY #30 capsule 11/22/21 [Rx] HYDROcodone/APAP 7.5-325MG [[place] 7.5] 1 each PO Q6HR PRN #28 tab 11/22/21 [Rx] Follow up Appointment(s)/Referral(s): Ezequiel Sanchez, PAC [PHYSICIAN METROLOGY TECHNICIAN] - 12/06/21 9:30 am [facility],Equipment [NON-STAFF] - As Needed (*Please call [facility] once home to arrange delivery of the Continuous Passive Motion (CPM) machine. ) Patient Instructions/Handouts: Knee Replacement (DC) Activity/Diet/Wound Care/Special Instructions: Orthopedic Discharge Instructions: 1. Wound care and infection precautions, keep incision dry and covered while showering, no lotions, creams, moisturizers. No soaking, pools, hot tubs. Do not scrub over incision. 2. Weight-bear as tolerated with walker / cane until follow-up. 3. Ice and elevate when necessary. Do not exceed 20 minutes per hour with ice pack. 4. Utilize compression sleeve until seen at first follow up appointment. 5. Pain meds and anticoagulants per prescription. 6. Pain medication has potential to cause constipation. Increase oral fluid and fiber intake. Contact primary care provider if you have not had a bowel movement within 48 hours after discharge. 7. No anti-inflammatory medication until discussed at first post operative visit, this including Motrin, Aleve, Mobic, Diclofenac. 8. Follow up in office at 2 weeks postop with Madhu Thakkar PA-C/Ezequiel Sanchez PA-C 9. Follow up with your primary care doctor 7-10 days after discharge. 10. Contact [facility] with any questions, . Discharge Disposition: HOME WITH HOME HEALTH SERVICES
--- NOTE | 2021-11-22 15:22 | P.PN ---
Subjective Progress Note Date: 11/22/21 - Reason for Consult Consult date: 11/21/21 Medical management status right total knee arthroplasty - History of Present Illness This is a pleasant 71-year-old female who was admitted under orthopedic services for right total knee arthroplasty and is postop day #1. Patient found sitting up in the chair and had worked with physical therapy although experiencing 10/10 pain and unable to do the stairs and recommend to have physical therapy evaluate daily and recommend staying another 24 hours for pain management. Patient does have a past medical history of diabetes mellitus, gastroesophageal reflux disease, and hypertension and follows with Dr. Giovanni Velasco out of [place] as her primary care provider. Patient takes lisinopril for blood pressure although recommend holding and monitoring closely for any postoperative hypotension. Recommend sliding scale and Accu-Cheks before meals and at bedtime as patient does have diabetes and reports to taking oral diabetic agents at home. Patient denies smoking, reports to occasional very rare social drinking, and denies any other illicit drugs. Labs this morning reveal a WBC of 8.26, hemoglobin is 13.2, platelets are 286, sodium is 136, potassium 5.2, BUN 20, creatinine 0.85, calcium is 9.3. Patient does have incentive spirometer at the bedside and encourage the patient to continue using at least 10 times every hour while awake and also encouraged increased activity as tolerated. Pain management and DVT prophylaxis per primary service. 11/22/2021 Patient is seen in follow-up this morning with no acute overnight issues noted. Patient reports to passing gas although no bowel movement and reports to urinating with no difficulties. Patient being monitored with Accu-Cheks before meals and at bedtime and home medications have been resumed patient also maintained on sliding scale and tolerating diet with no reports of nausea or vomiting noted. Patient was able to work with physical therapy and able to work on the stairs and is scheduled to be discharged home today per orthopedic services. Patient blood pressure mildly elevated and recommend resuming home medications. Patient instructed to continue using incentive spirometer at least 10 times every hour while awake and following up with primary care provider in the outpatient setting. Patient denies any chest pain, shortness of breath, or palpitations. Patient is afebrile. PHYSICAL EXAMINATION: GENERAL: The patient is alert and oriented x4, Well developed, well nourished. HEENT: Pupils are round and equally reacting to light. EOMI. no scleral icterus. No conjunctival pallor. Normocephalic, atraumatic. No pharyngeal erythema. No thyromegaly. CARDIOVASCULAR: S1 and S2 muffled PULMONARY: Chest is clear to auscultation with no wheezing or rhonchi noted. ABDOMEN: soft. Nontender on exam. obese. non-distended, normoactive bowel sounds. No palpable organomegaly. MUSCULOSKELETAL: No joint swelling or deformity. EXTREMITIES: No cyanosis, clubbing, or pedal edema. Right knee surgical dressing is intact with no surrounding redness and some minimal swelling noted NEUROLOGICAL: Gross neurological examination did not reveal any focal deficits. Diffuse weakness SKIN: No rashes. Assessment: Status post right total knee arthroplasty Diabetes mellitus type 2 Hypertension Gastroesophageal reflux disease History of restless leg syndrome GI prophylaxis DVT prophylaxis Full code Plan: Recommend to continue with current medications and management per orthopedic services. Patient maintained on Accu-Cheks before meals and at bedtime and also sliding scale along with home diabetic agents. Recommend resuming blood pressure medication and monitoring blood pressure in the outpatient setting and following up with primary care provider. Patient was able to work with physical therapy today and tolerated the stairs and will be discharged home today. Encourage the patient to continue using incentive spirometer at least 10 times every hour while awake and elevating lower extremities while at rest. Instructed the patient to continue monitoring blood sugars and keep a diary for primary care follow-up. We will continue to follow during hospitalization. Thank you for this consultation. The impression and plan of care has been dictated by Keisha Elena, nurse practitioner as directed. Dr. Woodrow MD I have performed a history and examination and MDM of this patient, discussed the same with the dictator, and agree with the dictator's assessment and plan as written ,documented as a scribe. Based on total visit time, I have performed more than 50% of the visit. Any additional findings or plans will be noted. Objective - Vital Signs Vital signs: Vital Signs Temp 98.0 F 11/22/21 08:00 Pulse 100 11/22/21 08:00 Resp 18 11/22/21 08:00 BP 167/84 11/22/21 08:00 Pulse Ox 96 11/22/21 08:00 Intake & Output 11/21/21 11/22/21 11/22/21 18:59 06:59 18:59 Other: # Voids 4 1 # Bowel Movements 1 - Labs CBC & Chem 7: 11/21/21 03:58 11/21/21 03:58 Labs: Abnormal Lab Results - Last 24 Hours (Table) 11/21/21 11/21/21 11/21/21 Range/Units 12:08 16:46 20:31 POC Glucose (mg/dL) 294 H 362 H 329 H (75-99) mg/dL 11/22/21 Range/Units 07:03 POC Glucose (mg/dL) 206 H (75-99) mg/dL
--- NOTE | 2021-11-22 17:18 | P.ANPRN ---
Procedure Note - Anesthesia - Nerve Block Performed Right Adductor Canal Infusion Time Out Performed: Yes Date of Procedure: 11/20/21 Procedure Start Time: :33 Procedure Stop Time: :42 Location of Patient: PreOp Indication: Acute Post-Operative Pain, Requested by Surgeon Sedation Type: Sedate with meaningful contact maintained Preparation: Sterile Prep, Sterile Dressing Position: Supine Catheter: Indwelling Needle Types: Pajunk Needle Gauge: 21 Ultrasound used to visualize needle placement: Yes Ultrasound used to observe medication spread: Yes Blood Aspirated: No Pain Paresthesia on Injection Noted: No Resistance on Injection: Normal Image Stored and Saved: Yes Events: Uneventful and Well Tolerated (ropi .5% 20cc)
--- NOTE | 2021-11-22 17:19 | P.ANPRN ---
Procedure Note - Anesthesia - Nerve Block Performed Right [place] Single Time Out Performed: Yes Date of Procedure: 11/20/21 Procedure Start Time: 09:43 Procedure Stop Time: 09:48 Location of Patient: PreOp Indication: Acute Post-Operative Pain, Requested by Surgeon Sedation Type: Sedate with meaningful contact maintained Preparation: Sterile Prep Position: Supine Needle Types: Pajunk Needle Gauge: 21 Ultrasound used to visualize needle placement: Yes Ultrasound used to observe medication spread: Yes Blood Aspirated: No Pain Paresthesia on Injection Noted: No Resistance on Injection: Normal Image Stored and Saved: Yes Events: Uneventful and Well Tolerated (ropi .5% 20cc plus dexamethasone 4mg)
== END 2021-11-22 14:03 | disposition home health service (06) ==
LOC: OR 08:32 → 4SSUR 15:42 → OR 11-21 07:35 → 4SSUR 11-21 07:35
PROVIDERS: ADMIT Orthopaedic Surgery; ATTEND Orthopaedic Surgery
DX: M17.11 Unilateral primary osteoarthritis, right knee (principal); M25.761 Osteophyte, right knee; D64.9 Anemia, unspecified; E11.9 Type 2 diabetes mellitus without complications; I10 Essential (primary) hypertension; E78.5 Hyperlipidemia, unspecified; K21.9 Gastro-esophageal reflux disease without esophagitis; G25.81 Restless legs syndrome; Z86.16 Personal history of COVID-19; Z96.652 Presence of left artificial knee joint; Z80.8 Family history of malignant neoplasm of other organs or systems; Z79.84 Long term (current) use of oral hypoglycemic drugs; Z79.82 Long term (current) use of aspirin; Z79.899 Other long term (current) drug therapy
CPT/HCPCS: 97116; 97161; 97535; 97165; 64999; 64448; 76942; 80053; 85025; 88300; 73560; 27447; G0378 ×2; C1713 ×2; C1776; J2250; J1100; J0690 ×3; J2405; J3010; J1650 ×2; J2795 ×2; J2704; J1170 ×2